=== PATIENT | female | born 1950 | race Caucasian/White ===

== ENCOUNTER 2017-11-08 23:24 | Emergency (ER) | payer MEDICAID, MEDICARE ==
[~2017-11-08] VITALS: Ht 147.3 cm; Wt 57.3 kg
[2017-11-08] MEDS ORDERED: FURO20 PO (23:34)
[2017-11-08] MEDS ORDERED: LEVO125 PO (23:34)
[2017-11-08] MEDS ORDERED: LOSA50TA25 PO (23:34)
[2017-11-08] MEDS ORDERED: PRED20 PO (23:34)
[2017-11-08] MEDS ORDERED: OMEP20 PO (23:34)
[2017-11-09] MEDS: ZINC OXIDE 20% 30 GM OINTMENT TP ONE (02:02)
[2017-11-09] MEDS: MUPIROCIN CALCIUM 2% 22 GM OINTMENT TP ONE (02:02)
[2017-11-09 02:22] VITALS: BP 144/80
== END 2017-11-09 02:31 | disposition home or self-care (01) ==
LOC: EMS 23:24
DX: K94.01 Colostomy hemorrhage (principal); K94.09 Other complications of colostomy; L40.9 Psoriasis, unspecified; L30.9 Dermatitis, unspecified; I10 Essential (primary) hypertension; E78.00 Pure hypercholesterolemia, unspecified; K21.9 Gastro-esophageal reflux disease without esophagitis; Z88.0 Allergy status to penicillin; Z88.1 Allergy status to other antibiotic agents; Z88.6 Allergy status to analgesic agent; Z88.8 Allergy status to other drugs, medicaments and biological substances
CPT/HCPCS: 99283

== ENCOUNTER 2017-11-29 05:48 | Emergency (ER) | payer MEDICARE ==
[~2017-11-29] VITALS: Ht 147.3 cm; Wt 57.0 kg
[~2017-11-29 05:48] MED LIST: FURO20 PO; LEVO125 PO; LOSA50TA25 PO; OMEP20 PO; PRED20 PO
[2017-11-29 08:00] VITALS: BP 132/78
== END 2017-11-29 08:24 | disposition home or self-care (01) ==
LOC: EMS 05:48
DX: S00.03XA Contusion of scalp, initial encounter (principal); M48.02 Spinal stenosis, cervical region; K21.9 Gastro-esophageal reflux disease without esophagitis; E78.00 Pure hypercholesterolemia, unspecified; I10 Essential (primary) hypertension; Z93.3 Colostomy status; Z79.899 Other long term (current) drug therapy; Z88.6 Allergy status to analgesic agent; Z88.1 Allergy status to other antibiotic agents; Z88.5 Allergy status to narcotic agent; Z88.0 Allergy status to penicillin; Z88.8 Allergy status to other drugs, medicaments and biological substances; W01.0XXA Fall on same level from slipping, tripping and stumbling without subsequent striking against object, initial encounter; Y93.89 Activity, other specified; Y92.89 Other specified places as the place of occurrence of the external cause; Y99.8 Other external cause status
CPT/HCPCS: 70450; 72125; 99284

== ENCOUNTER 2017-12-08 00:23 | Emergency (ER) | payer MEDICARE ==
[~2017-12-08] VITALS: Ht 147.3 cm; Wt 56.8 kg
[2017-12-08 01:37] LABS: EOSINOPHILS % (AUTO) 3.4 % (1.0-6.0); HEMOGLOBIN 9.6 g/dL (12.0-16.0); LYMPHOCYTES % (AUTO) 11.7 % (22.0-44.0); MEAN CORPUSCULAR VOLUME 68 fL (80-100); MONOCYTES # (AUTO) 0.8 K/uL (0.1-1.0); MONOCYTES % (AUTO) 9.4 % (2.0-9.0); NEUTROPHILS # (AUTO) 6.3 K/uL (1.8-7.7); NEUTROPHILS % (AUTO) 74.5 % (40.0-70.0); PLATELET COUNT (AUTO) 408 K/uL (150-450); RED BLOOD CELL COUNT(AUTO) 4.57 MIL/uL (4.00-5.20); RED CELL DISTRIBUTION WIDTH 21.8 % (11.5-14.5)
[2017-12-08 01:47] LABS: CALCIUM, TOTAL 8.5 mg/dL (8.8-10.5); CREATININE 1.15 mg/dL (0.60-1.30); POTASSIUM 3.4 mmol/L (3.5-5.1)
[2017-12-08 01:53] LABS: ALBUMIN 2.9 g/dL (3.4-5.0); BILIRUBIN,TOTAL 0.2 mg/dL (0.1-1.0); TOTAL PROTEIN, SERUM 6.5 g/dL (6.4-8.2)
[2017-12-08 02:26] VITALS: BP 133/49
== END 2017-12-08 02:57 | disposition home or self-care (01) ==
LOC: EMS 00:25
DX: R10.13 Epigastric pain (principal); R07.9 Chest pain, unspecified; K21.9 Gastro-esophageal reflux disease without esophagitis; E78.00 Pure hypercholesterolemia, unspecified; I10 Essential (primary) hypertension; Z93.3 Colostomy status; Z88.6 Allergy status to analgesic agent; Z88.1 Allergy status to other antibiotic agents; Z88.5 Allergy status to narcotic agent; Z88.0 Allergy status to penicillin; Z88.8 Allergy status to other drugs, medicaments and biological substances
CPT/HCPCS: 93005; 99285

== ENCOUNTER 2018-01-20 01:51 | Emergency (ER) | payer MEDICARE ==
[~2018-01-20] VITALS: Ht 165.1 cm; Wt 56.0 kg
[2018-01-20] MEDS ORDERED: ASPI81 PO (02:05)
[2018-01-20] MEDS ORDERED: FAMOTIDINE 10 MG/ML 2 ML VIAL IVP ONE (02:15)
[2018-01-20] MEDS ORDERED: MAG HYDROX/AL HYDROX/SIMETH ES 30 ML SUSPENSION UDCUP PO ONE (02:15)
[2018-01-20] MEDS ORDERED: KETOROLAC TROMETHAMINE 30 MG/ML VIAL IVP ONE (02:15)
[2018-01-20 02:30] LABS: BASOPHILS % (AUTO) 1.5 % (0.0-2.0); EOSINOPHILS % (AUTO) 4.5 % (1.0-6.0); HEMATOCRIT 31.2 % (36-46); HEMOGLOBIN 9.7 g/dL (12.0-16.0); LYMPHOCYTES % (AUTO) 18.1 % (22.0-44.0); MEAN CORPUSCULAR HEMOGLOBIN 21.1 pg (26.0-34.0); MEAN CORPUSCULAR VOLUME 68 fL (80-100); MONOCYTES # (AUTO) 0.8 K/uL (0.1-1.0); MONOCYTES % (AUTO) 7.2 % (2.0-9.0); NEUTROPHILS # (AUTO) 7.8 K/uL (1.8-7.7); NEUTROPHILS % (AUTO) 68.7 % (40.0-70.0); PLATELET COUNT (AUTO) 441 K/uL (150-450); RED CELL DISTRIBUTION WIDTH 20.5 % (11.5-14.5)
[2018-01-20] MEDS ORDERED: LORazepam 2 MG/ML VIAL IVP ONE (02:30)
[2018-01-20 02:40] LABS: CALCIUM, TOTAL 9.2 mg/dL (8.8-10.5); CREATININE 1.38 mg/dL (0.60-1.30); POTASSIUM 3.7 mmol/L (3.5-5.1)
[2018-01-20 02:50] LABS: PLATELET MORPHOLOGY COMMENT LARGE PLTS PRESENT
[2018-01-20 03:04] LABS: ALBUMIN 3.1 g/dL (3.4-5.0); BILIRUBIN,TOTAL 0.4 mg/dL (0.1-1.0); TOTAL PROTEIN, SERUM 6.6 g/dL (6.4-8.2)
[2018-01-20 03:40] LABS: APPEARANCE,URINE TURBID (CLEAR); BILIRUBIN,URINE NEGATIVE (NEGATIVE); GLUCOSE, URINE (UA) NEGATIVE (NEGATIVE); KETONES,URINE NEGATIVE (NEGATIVE); LEUKOCYTE ESTERASE ,URINE MODERATE (NEGATIVE); NITRATE,URINE NEGATIVE (NEGATIVE); OCCULT BLOOD,URINE NEGATIVE (NEGATIVE); PROTEIN,URINE TRACE (NEGATIVE); UROBILINOGEN,URINE 0.2 mg/dL (<=1.0)
[2018-01-20 03:45] LABS: BACTERIA,URINE Moderate /HPF (None Seen); RBC,URINE 0-2 /HPF (0-2)
[2018-01-20 03:46] LABS: SQUAMOUS EPITHELIAL CELL,UR Few /LPF (None Seen)
[2018-01-20] MEDS ORDERED: SULFAMETHOX/TRIMETH DS 800-160 MG/TABLET PO ONE (04:00)
[2018-01-20 04:01] VITALS: BP 135/66
== END 2018-01-20 04:49 | disposition home or self-care (01) ==
LOC: EMS 01:51
DX: N39.0 Urinary tract infection, site not specified (principal); F41.9 Anxiety disorder, unspecified; R07.9 Chest pain, unspecified; K21.9 Gastro-esophageal reflux disease without esophagitis; E78.00 Pure hypercholesterolemia, unspecified; I10 Essential (primary) hypertension; Z93.3 Colostomy status; Z79.82 Long term (current) use of aspirin; Z88.6 Allergy status to analgesic agent; Z88.1 Allergy status to other antibiotic agents; Z88.0 Allergy status to penicillin; Z88.8 Allergy status to other drugs, medicaments and biological substances
CPT/HCPCS: 36415; 71045; 80053; 81001; 82550; 83880; 84484; 85025; 85610; 85730; 87086; 93005; 96374; 96375; 99285; J1885; J2060; J3490

== ENCOUNTER 2019-02-19 11:34 | Inpatient (IN) | payer MEDICARE ==
[~2019-02-19] VITALS: Ht 147.3 cm; Wt 68.0 kg
[~2019-02-19 11:34] MED LIST changes: +ASPI81 PO; -FURO20 PO; -LEVO125 PO; -LOSA50TA25 PO; -OMEP20 PO; -PRED20 PO
[2019-02-19] MEDS ORDERED: SULFAMETHOX/TRIMETH DS 800-160 MG/TABLET PO ONE (13:00)
[2019-02-19] MEDS ORDERED: CLOTRIMAZOLE 1% 15 GM CREAM TP ONE (13:00)
[2019-02-19] MEDS ORDERED: SENN-176 PO (13:14)
[2019-02-19] MEDS ORDERED: BISA5TAB12 PO (13:14)
[2019-02-19] MEDS ORDERED: FLUT16H NASAL (13:14)
[2019-02-19] MEDS ORDERED: ACET-3207 PO (13:14)
[2019-02-19] MEDS ORDERED: ISOS30TA6 PO (13:14)
[2019-02-19] MEDS ORDERED: MOM30 PO (13:14)
[2019-02-19] MEDS ORDERED: FE PR (13:14)
[2019-02-19] MEDS ORDERED: BISA10SU11 PR (13:14)
[2019-02-19] MEDS ORDERED: FLUCONAZOLE 150 MG TABLET PO ONE (13:15)
[2019-02-19 13:43] LABS: BASOPHILS % (AUTO) 0.8 % (0.0-2.0); EOSINOPHILS % (AUTO) 0.8 % (1.0-6.0); HEMATOCRIT 35.9 % (36-46); HEMOGLOBIN 11.6 g/dL (12.0-16.0); LYMPHOCYTES # (AUTO) 1.2 K/uL (1.0-4.8); LYMPHOCYTES % (AUTO) 12.8 % (22.0-44.0); MEAN CORPUSCULAR HEMOGLOBIN 26.3 pg (26.0-34.0); MEAN CORPUSCULAR HGB CONC 32.4 G/dL (31.0-37.0); MEAN CORPUSCULAR VOLUME 81 fL (80-100); MONOCYTES # (AUTO) 0.8 K/uL (0.1-1.0); MONOCYTES % (AUTO) 8.4 % (2.0-9.0); NEUTROPHILS # (AUTO) 7.2 K/uL (1.8-7.7); NEUTROPHILS % (AUTO) 77.2 % (40.0-70.0); PLATELET COUNT (AUTO) 322 K/uL (150-450); RED BLOOD CELL COUNT(AUTO) 4.43 MIL/uL (4.00-5.20)
[2019-02-19 13:44] LABS: APPEARANCE,URINE CLEAR (CLEAR); BILIRUBIN,URINE NEGATIVE (NEGATIVE); GLUCOSE, URINE (UA) NEGATIVE (NEGATIVE); KETONES,URINE NEGATIVE (NEGATIVE); LEUKOCYTE ESTERASE ,URINE SMALL (NEGATIVE); NITRATE,URINE NEGATIVE (NEGATIVE); OCCULT BLOOD,URINE NEGATIVE (NEGATIVE); PROTEIN,URINE NEGATIVE (NEGATIVE); UROBILINOGEN,URINE 0.2 mg/dL (<=1.0)
[2019-02-19 13:51] LABS: CALCIUM, TOTAL 8.9 mg/dL (8.8-10.5); CREATININE 1.29 mg/dL (0.60-1.30); POTASSIUM 3.6 mmol/L (3.5-5.1)
[2019-02-19 13:54] LABS: PROTHROMBIN TIME 9.9 SEC (9.4-11.6)
[2019-02-19 14:09] LABS: BACTERIA,URINE None Seen /HPF (None Seen); RBC,URINE None Seen /HPF (0-2); SQUAMOUS EPITHELIAL CELL,UR Few /LPF (None Seen)
[2019-02-19] MEDS ORDERED: ACETAMINOPHEN 325 MG TABLET PO PRN (14:15)
[2019-02-19] MEDS ORDERED: 0.9% SODIUM CHLORIDE 10 ML SYRINGE IVP PRN (14:15)
[2019-02-19 14:16] LABS: BILIRUBIN,TOTAL 0.3 mg/dL (0.1-1.0); TOTAL PROTEIN, SERUM 6.9 g/dL (6.4-8.2)
[2019-02-19 21:04] VITALS: BP 150/89
[2019-02-19 23:19] VITALS: BP 139/59
[2019-02-20] MEDS ORDERED: NITROGLYCERIN 0.4 MG SUBLINGUAL TABLET #25 SL PRN (01:45)
[2019-02-20] MEDS ORDERED: DiphenhydrAMINE HCL 50 MG/ML VIAL IM PRN (01:45)
[2019-02-20] MEDS ORDERED: ACETAMINOPHEN 325 MG TABLET PO PRN (02:30)
[2019-02-20 05:22] VITALS: BP 156/66
[2019-02-20 07:50] VITALS: BP 173/77
[2019-02-20] MEDS: FAMOTIDINE 10 MG/ML 2 ML VIAL IVP SCH (08:22)
[2019-02-20] MEDS: TRIAMCINOLONE 0.5% 15 GM CREAM TP SCH ×2 (08:23→20:28)
[2019-02-20] MEDS: ENOXAPARIN SODIUM 30 MG/0.3 ML PF SYRINGE SQ SCH ×2 (08:23→20:27)
[2019-02-20] MEDS: ISOSORBIDE MONONITRATE 30 MG ER TABLET PO SCH (08:23)
[2019-02-20] MEDS: ASPIRIN 81 MG CHEWABLE TABLET PO SCH (08:23)
[2019-02-20] MEDS: CLOTRIMAZOLE 1% 10 ML SOLUTION TP SCH ×2 (08:35→20:28)
[2019-02-20 11:43] VITALS: BP 143/70
[2019-02-20 15:41] VITALS: BP 138/68
[2019-02-20 20:29] VITALS: BP 129/75
[2019-02-20 23:59] VITALS: BP 131/81
[2019-02-21 04:26] VITALS: BP 143/74
[2019-02-21 06:42] LABS: BASOPHILS % (AUTO) 0.9 % (0.0-2.0); EOSINOPHILS % (AUTO) 0.6 % (1.0-6.0); HEMATOCRIT 35.2 % (36-46); HEMOGLOBIN 11.5 g/dL (12.0-16.0); LYMPHOCYTES # (AUTO) 1.3 K/uL (1.0-4.8); LYMPHOCYTES % (AUTO) 15.3 % (22.0-44.0); MEAN CORPUSCULAR HEMOGLOBIN 26.4 pg (26.0-34.0); MEAN CORPUSCULAR HGB CONC 32.8 G/dL (31.0-37.0); MEAN CORPUSCULAR VOLUME 81 fL (80-100); MONOCYTES # (AUTO) 0.6 K/uL (0.1-1.0); MONOCYTES % (AUTO) 7.7 % (2.0-9.0); NEUTROPHILS # (AUTO) 6.4 K/uL (1.8-7.7); NEUTROPHILS % (AUTO) 75.5 % (40.0-70.0); PLATELET COUNT (AUTO) 335 K/uL (150-450); RED BLOOD CELL COUNT(AUTO) 4.37 MIL/uL (4.00-5.20); RED CELL DISTRIBUTION WIDTH 24.4 % (11.5-14.5)
[2019-02-21 07:21] LABS: CALCIUM, TOTAL 8.8 mg/dL (8.8-10.5); CHOL/HDL RATIO 2.1 (3.9-5.7); CREATININE 1.39 mg/dL (0.60-1.30)
[2019-02-21 07:42] VITALS: BP 151/81
[2019-02-21] MEDS: FAMOTIDINE 10 MG/ML 2 ML VIAL IVP SCH (09:00)
[2019-02-21] MEDS: ASPIRIN 81 MG CHEWABLE TABLET PO SCH (09:00)
[2019-02-21] MEDS: ENOXAPARIN SODIUM 30 MG/0.3 ML PF SYRINGE SQ SCH ×2 (10:03→20:03)
[2019-02-21] MEDS: ISOSORBIDE MONONITRATE 30 MG ER TABLET PO SCH (10:05)
[2019-02-21] MEDS: CLOTRIMAZOLE 1% 10 ML SOLUTION TP SCH ×2 (10:11→20:04)
[2019-02-21] MEDS: TRIAMCINOLONE 0.5% 15 GM CREAM TP SCH ×2 (10:20→20:03)
[2019-02-21] MEDS ORDERED: SODIUM CHLORIDE 0.9% 250 ML IV ONE (11:00)
[2019-02-21 11:44] VITALS: BP 137/67
[2019-02-21] MEDS ORDERED: CefTRIAXone 1 GM/DEXTROSE 50 ML IV SCH (12:00)
[2019-02-21 16:35] VITALS: BP 117/60
[2019-02-21 20:24] VITALS: BP 134/65
[2019-02-22 00:40] VITALS: BP 140/81
[2019-02-22 05:36] VITALS: BP 128/58
[2019-02-22 06:30] LABS: CREATININE 1.5 mg/dL (0.60-1.30); POTASSIUM 4.1 mmol/L (3.5-5.1)
[2019-02-22 07:30] VITALS: BP 122/76
[2019-02-22] MEDS: ASPIRIN 81 MG CHEWABLE TABLET PO SCH (07:53)
[2019-02-22] MEDS: CLOTRIMAZOLE 1% 10 ML SOLUTION TP SCH (09:04)
[2019-02-22] MEDS: TRIAMCINOLONE 0.5% 15 GM CREAM TP SCH (09:04)
[2019-02-22] MEDS: ISOSORBIDE MONONITRATE 30 MG ER TABLET PO SCH (09:05)
[2019-02-22] MEDS: ENOXAPARIN SODIUM 30 MG/0.3 ML PF SYRINGE SQ SCH (09:05)
[2019-02-22] MEDS: FAMOTIDINE 10 MG/ML 2 ML VIAL IVP SCH (09:12)
[2019-02-22] MEDS ORDERED: CefoTEtan DISOD 1 GM/DEXTROSE 50 ML IV SCH (11:00)
[2019-02-22] MEDS ORDERED: SODIUM CHLORIDE 0.9% 100 ML ONE (11:19)
[2019-02-22 11:56] VITALS: BP 145/69
[2019-02-22] MEDS ORDERED: AMLO5TAB9 PO (12:39)
[2019-02-22] MEDS ORDERED: BUTE12CR TP (12:42)
[2019-02-22] MEDS ORDERED: CEFO2I IV (12:43)
[2019-02-22] MEDS ORDERED: TRIA15CR58 TP (12:44)
[2019-02-22] MEDS ORDERED: ISOS30TA6 PO (12:44)
[2019-02-23] MEDS ORDERED: AmLODIPine BESYLATE 5 MG TABLET PO SCH (09:00)
== END 2019-02-22 14:15 | DRG 302 ==
LOC: EMS 11:37 → 5S 19:20
PROVIDERS: ADMIT Internal Medicine; ATTEND Internal Medicine
DX: I25.10 Atherosclerotic heart disease of native coronary artery without angina pectoris (principal); E43 Unspecified severe protein-calorie malnutrition; N39.0 Urinary tract infection, site not specified; E87.1 Hypo-osmolality and hyponatremia; N17.9 Acute kidney failure, unspecified; Z16.12 Extended spectrum beta lactamase (ESBL) resistance; L40.9 Psoriasis, unspecified; B35.6 Tinea cruris; Z88.8 Allergy status to other drugs, medicaments and biological substances; Z88.6 Allergy status to analgesic agent; Z91.041 Radiographic dye allergy status; Z91.013 Allergy to seafood; Z68.31 Body mass index [BMI] 31.0-31.9, adult; D64.9 Anemia, unspecified; E78.00 Pure hypercholesterolemia, unspecified; E78.5 Hyperlipidemia, unspecified; I10 Essential (primary) hypertension; Z82.49 Family history of ischemic heart disease and other diseases of the circulatory system; Z93.3 Colostomy status; Z95.5 Presence of coronary angioplasty implant and graft
CPT/HCPCS: 87040; 87081; 87086; 93005; 93306; G0378; J0696; J1650; J3490; J7050